=== PATIENT | female | born 1955 | race Caucasian/White ===

== ENCOUNTER 2022-08-21 16:05 | Outpatient (REF) | payer OTHER, SELFPAY ==
--- NOTE | ~2022-08-21 | XR_ITS ---
EXAMINATION: XR CERVICAL SPINE CLINICAL INFORMATION: Cerebral aneurysm COMPARISON: None TECHNIQUE: AP, lateral, Fuchs, and open mouth odontoid views of the cervical spine. FINDINGS: Vertebral alignment is normal without spondylolisthesis. Vertebral body heights are normal. No fractures are evident. There is mild to moderate multilevel degenerative disc disease from C4-C5 through C6-C7, characterized by loss of intervertebral disc height, end plate osteophytes, and uncovertebral osteophytes. Mild multilevel facet arthropathy is also noted. 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 Prevertebral soft tissues are normal. Emphysema is suspected in the lung apices. Pleural parenchymal scarring at the right lung apex. XR/XR cervical spine 2V IMPRESSION: 1. Mild to moderate multilevel degenerative disc disease in the cervical spine. 2. No acute fracture or malalignment.
== END 2022-08-21 16:06 | disposition home or self-care (01) ==
LOC: HO.XRAY 16:05
PROVIDERS: Visit Provider Psychiatry & Neurology Neurology
DX: I67.1 Cerebral aneurysm, nonruptured (principal)
CPT/HCPCS: 72040

== ENCOUNTER 2022-11-25 17:17 | Outpatient (REF) | payer OTHER, SELFPAY ==
--- NOTE | ~2022-11-25 | MR_ITS ---
EXAMINATION: MR ANGIOGRAPHY BRAIN WITHOUT CONTRAST MRV HEAD WITH CONTRAST CLINICAL INFORMATION: Headaches COMPARISON: None. TECHNIQUE: 3D [id number] MR angiography was performed through the brain without the use of intravenous gadolinium and axial source images were reviewed along with rotating MIPs. [id number], 3-D sagittal velocity, and postcontrast MR venography of the head acquired. A total of 7.5 mL of Gadavist was administered intravenously. 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 Normal flow-related signal is seen within the anterior and posterior circulation. Incidental configuration of the right PACKAGE CLERK complex. 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 No focal flow-limiting stenosis or proximal large artery occlusion. No arteriovenous shunting lesion. MRV: The superficial and deep venous systems are widely patent. There is no cerebral venous thrombosis. There is a 8 mm rounded filling defect within the posterior aspect of the superior sagittal sinus, most suggestive of a prominent arachnoid granulation. OTHER: Visualized brain parenchyma appears normal on limited screening sequences. No abnormal intracranial enhancement. There is a large nasal septal defect spanning 3.6 cm in AP dimension and 2.0 cm in height. Evidence of prior functional endoscopic sinus surgery with left maxillary uncinectomy, antrostomy, and resection of the left middle nasal turbinate with widely patent maxillary antrostomy moderate mucosal disease throughout the left sinonasal cavity, most pronounced in the maxillary and sphenoid sinuses with some nonenhancing debris/cysts in the left alveolar recess. 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 Normal MRV of the head. Large nasal septal defects with postsurgical changes in the left sinonasal cavity as above.
--- NOTE | ~2022-11-25 | MR_ITS ---
EXAMINATION: MR ANGIOGRAPHY BRAIN WITHOUT CONTRAST MRV HEAD WITH CONTRAST CLINICAL INFORMATION: Headaches COMPARISON: None. TECHNIQUE: 3D [id number] MR angiography was performed through the brain without the use of intravenous gadolinium and axial source images were reviewed along with rotating MIPs. [id number], 3-D sagittal velocity, and postcontrast MR venography of the head acquired. A total of 7.5 mL of Gadavist was administered intravenously. 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 Normal flow-related signal is seen within the anterior and posterior circulation. Incidental configuration of the right [employer] OPERATOR complex. 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 No focal flow-limiting stenosis or proximal large artery occlusion. No arteriovenous shunting lesion. MRV: The superficial and deep venous systems are widely patent. There is no cerebral venous thrombosis. There is a 8 mm rounded filling defect within the posterior aspect of the superior sagittal sinus, most suggestive of a prominent arachnoid granulation. OTHER: Visualized brain parenchyma appears normal on limited screening sequences. No abnormal intracranial enhancement. There is a large nasal septal defect spanning 3.6 cm in AP dimension and 2.0 cm in height. Evidence of prior functional endoscopic sinus surgery with left maxillary uncinectomy, antrostomy, and resection of the left middle nasal turbinate with widely patent maxillary antrostomy moderate mucosal disease throughout the left sinonasal cavity, most pronounced in the maxillary and sphenoid sinuses with some nonenhancing debris/cysts in the left alveolar recess. 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 Normal MRV of the head. Large nasal septal defects with postsurgical changes in the left sinonasal cavity as above.
== END 2022-11-25 17:18 | disposition home or self-care (01) ==
LOC: HO.MRI 17:17
PROVIDERS: Visit Provider Psychiatry & Neurology Neurology
DX: I67.1 Cerebral aneurysm, nonruptured (principal); R51.9 Headache, unspecified
CPT/HCPCS: 70544; 70546; A9585